=== PATIENT | female | born 1975 | race Two or more races ===

== ENCOUNTER 2019-09-07 21:29 | Emergency (ER) | payer OTHER ==
[~2019-09-07] VITALS: Ht 157.5 cm; Wt 72.6 kg
[2019-09-08] MEDS ORDERED: INTESTINEX680 M1 PO (02:51)
[2019-09-08] MEDS ORDERED: ZOFRAN4 MG PO (02:51)
[2019-09-08] MEDS ORDERED: PEPCID40 MG PO (02:51)
== END 2019-09-08 04:03 ==
LOC: ER 21:29 → EDBD 22:07 → ER 09-08 04:03
DX: K52.89 Other specified noninfective gastroenteritis and colitis (principal)